=== PATIENT | male | born 1965 | race Caucasian/White ===

== ENCOUNTER 2020-06-28 08:55 | Emergency (ER) | payer BC, OTHER ==
[~2020-06-28] VITALS: Ht 177.8 cm; Wt 108.9 kg
[~2020-06-28 08:55] MED LIST: AMBEREN; ASPIRIN EC81 M1 PO; COUMADIN 5 MG TA5 M1 PO; CRESTOR5 MG PO; PACERONE 200 M200 MG PO; PHENERGAN 25 MG25 M1 PO; PREDNISONE 10 M10 M1; PROTONIX40 M2 PO; SOTALOL 120 MG120 MG PO; SOTALOL160 MG; UNICOMPLEX M TA1 TA1 PO; XANAX 0.5 MG0.5 M1 PO
[2020-06-28 09:53] LABS: ABSOLUTE NEUTROPHILS 4.5 thou/uL (1.4-8.2); BASOPHILS 0.8 % (0.0-2.0); HEMATOCRIT 41.3 % (42.0-52.0); LYMPHOCYTES 21.7 % (24.0-44.0); MCH 32.2 pg (26.0-34.0); MCHC 33.9 g/dL (28.0-37.0); MONOCYTES 7.8 % (1.0-8.0); PLATELET COUNT 236 thou/uL (150-400); POLYS 51.7 % (36.0-66.0); RBC 4.35 mil/uL (4.50-6.00); RDW 13.2 % (10.5-14.5); WBC 8.7 thou/uL (4.0-11.0)
[2020-06-28 10:00] LABS: ANION GAP 7 mmol/L (7-16); BUN 15 mg/dL (7-18); CALCIUM 8.9 mg/dL (8.5-10.1); CHLORIDE 106 mmol/L (98-107); CO2 27 mmol/L (21-32); CREATININE 0.8 mg/dL (0.7-1.3); GLUCOSE 107 mg/dL (74-106); POTASSIUM 4.4 mmol/L (3.5-5.1)
[2020-06-28] MEDS ORDERED: ELIQUIS2.5 MG PO (10:03)
[2020-06-28 10:09] LABS: ALBUMIN 3.6 g/dL (3.4-5.0); SGOT 16 U/L (15-37); SGPT 19 U/L (30-65); TOTAL BILIRUBIN 0.4 mg/dL (0.2-1.0); TOTAL PROTEIN 6.9 g/dL (6.4-8.2); TROPONIN-I <0.06 ng/mL (<0.06)
[2020-06-28 10:17] LABS: SODIUM 140 mmol/L (136-145)
[2020-06-28 12:02] VITALS: BP 124/77
--- NOTE | 2020-06-28 13:54 | EKG ---
[facility] [place] [address] ELECTROCARDIOGRAM REPORT Name: STEVEN GARAY [facility] [id number] Admission: 06/28/20 Attend Phys: Discharge: 06/28/20 Date of : 65 Report #: [id number] THIS REPORT FOR: cc: SASHA BANSAL MD, HERBERT A. MD Santiago, Patrick MD [facility] ~ THIS REPORT FOR: //name// [facility] ED Test Date: 2020-06-28 Test Time: 09:11:02 Pat Name: STEVEN GARAY Department: Room: Gender: Search Consultant: ESHEETS : 1965 Requested By: Stan Aguilar Order Number: [id number] MD: Rodney Louise Measurements Intervals [place] Rate: 56 P: 15 [place]: 131 QRS: 0 QRSD: 114 T: 28 QT: 473 QTc: 457 Interpretive Statements Sinus rhythm Borderline intraventricular conduction delay Compared to ECG 10/02/2012 11:12:21 Sinus bradycardia no longer present Electronically Signed On 06-28-2020 13:54:18 CDT by Rodney Louise [email or web address] <ELECTRONICALLY SIGNED> By: Rodney Louise MD, FACC 06/28/20 1354 0911 0911 Rodney Louise MD, [facility] /EPI
== END 2020-06-28 12:02 | disposition home or self-care (01) ==
LOC: ER 08:55
PROVIDERS: Emergency Medicine
DX: F41.0 Panic disorder [episodic paroxysmal anxiety] (principal); I48.91 Unspecified atrial fibrillation; E78.00 Pure hypercholesterolemia, unspecified; E66.01 Morbid (severe) obesity due to excess calories; Z79.899 Other long term (current) drug therapy; Z79.82 Long term (current) use of aspirin